=== PATIENT | female | born 1985 | race Two or more races ===

== ENCOUNTER → 2020-08-24 | Outpatient (REF) | payer OTHER ==
[2020-08-24 17:46] LABS: FREE T4 0.94 NG/DL (0.76-1.46); THYROID STIMULATING HORMONE 0.932 uIU/ML (0.358-3.740)
[2020-08-27 12:07] LABS: TESTOSTERONE FREE (DIRECT) 4.5 pg/mL (0.0-4.2)
== END ==
LOC: M PLALAB 14:54
PROVIDERS: ATTEND Obstetrics & Gynecology
DX: L68.0 Hirsutism (principal)
CPT/HCPCS: 36415; 82627; 84402; 84403; 84439; 84443; G0463

== ENCOUNTER → 2021-01-21 | Outpatient (CLI) | payer OTHER ==
--- NOTE | 2021-01-21 11:29 | REP ---
INDICATION: ANOVULATION. COMPARISON: None. TECHNIQUE: Transabdominal and transvaginal scanning performed. FINDINGS: Uterine dimensions are 10.4 x 2.4 x 5.0 cm. Endometrial echo is 6 mm in AP dimension and centrally placed. Uterus has a configuration suggesting either an arcuate or subseptate uterus. The bladder measures 14.2 x 9.5 x 10.8cm. The right ovary has dimensions of 3.7 x 2.0 x 2.4 cm. It's Doppler flow is normal with a resistive index of 0.49. The left ovary dimensions are 4.4 x 2.1 x 1.4 cm. It's Doppler flow was normal with resistive index of 0.51. There is no adnexal mass identified. No free fluid is seen in the cul-de-sac. IMPRESSION: Negative pelvic ultrasound. Findings suggestive of arcuate or subseptate uterus. <Electronically signed by Catalino Barrera > 01/21/21 [id number]
== END ==
LOC: M WHC 08:54
PROVIDERS: ATTEND Obstetrics & Gynecology
DX: N97.0 Female infertility associated with anovulation (principal)